=== PATIENT | female | born 1955 | race Caucasian/White ===

== ENCOUNTER → 2019-10-07 | Outpatient (CLI) | payer BC | LOC: OD 11:40 | PROVIDERS: ATTEND Orthopaedic Surgery | DX: M16.12 Unilateral primary osteoarthritis, left hip (principal); M25.50 Pain in unspecified joint | CPT/HCPCS: 36415; 85652; 86140 ==

== ENCOUNTER → 2019-10-18 | Outpatient (CLI) | payer BC ==
--- NOTE | 2019-10-18 14:31 | RADIOLOGY REPORT (SQ) ---
EXAM DESCRIPTION: CT LT LOWER EXTREMITY WITHOUT COMPLETED DATE/TIME: 10/18/2019 1:35 pm REASON FOR STUDY: PAIN IN LEFT KNEE M25.562 PAIN IN LEFT KNEE COMPARISON: None. TECHNIQUE: Axial imaging performed through the left knee with reformatted coronal and sagittal imagi ng windowed for bone and soft tissues. Images saved to PACS. 3D IMAGING: Were 3D images as MIP, SSD, or volume rendering performed at the work station? No. All CT scanners at this facility use dose modulation, iterative reconstruction, and/or weight based d osing when appropriate to reduce radiation dose to as low as reasonably achievable (ALARA). [facility]: Dose Right [facility]: CareDose [facility]: Dose Right [facility]: Teradose 4D [facility]: [employer] LIMITATIONS: None. RADIATION DOSE: CT Rad equipment meets quality standard of care and radiation dose reduction techniq ues were employed. CTDIvol: 4.1 mGy. DLP: 83 mGy-cm. mGy. FINDINGS: SOFT TISSUES: Fairly sizable joint effusion. Small popliteal cyst. BONES: Previous ACL graft with proximal and distal K-wires and cement along the tunnels. Mild lucenc y along some of the cement. Cystic changes on both sides of the joint with slightly posteriorly disp laced appearance of the femur relative to the tibia. Loss of the intercondylar notch with no suspect ed room for the ACL graft. Presumably, the ACL is completely disrupted. Marked joint space narrowin g in the medial compartment. Similar but less pronounced changes in the lateral compartment. MINERALIZATION: Osteopenic. OTHER: No other significant finding. IMPRESSION: 1. 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 2. Osteopenic. 3. Degenerative changes. 4. Sizable joint effusion. TECHNICAL DOCUMENTATION: JOB ID: [id number] Quality ID # [id number]: Final reports with documentation of one or more dose reduction techniques (e.g., Au tomated exposure control, adjustment of the mA and/or kV according to patient size, use of iterative reconstruction technique) 2010 [employer]- All Rights Reserved Reading location - IP/workstation name: [email or web address]
== END ==
LOC: RAD 12:51
PROVIDERS: ATTEND Orthopaedic Surgery
DX: M25.562 Pain in left knee (principal); M85.862 Other specified disorders of bone density and structure, left lower leg; M71.22 Synovial cyst of popliteal space [Baker], left knee